=== PATIENT | male | born 1995 | race Caucasian/White ===

== ENCOUNTER 2016-07-01 09:46 | Day surgery (SDC) | payer BC, OTHER ==
[2016-07-01] MEDS ORDERED: BUPIVACAINE/PF-EPI 0.5% 1:200K ONE (10:02)
[2016-07-01] MEDS ORDERED: BUPIVACAINE/PF 0.5% ONE (10:02)
== END 2016-07-01 10:40 | disposition home or self-care (01) ==
LOC: OUT 09:46
PROVIDERS: ATTEND Orthopaedic Surgery
DX: Z02.9 Encounter for administrative examinations, unspecified (principal)
CPT/HCPCS: J3490